=== PATIENT | female | born 1950 | race Caucasian/White ===

== ENCOUNTER 2019-11-05 15:53 | Outpatient (CLI) | payer MEDICARE, OTHER, SELFPAY ==
--- NOTE | 2019-11-05 | US_ITS ---
WS: [id number] RENAL ULTRASOUND HISTORY: RENAL CYST COMPARISON: 06/11/2019 TECHNIQUE: 2-D and color Doppler imaging of the kidney submitted. Right kidney: 11.0 cm x 3.9 cm x 5.0 cm. Normal echogenicity with no hydronephrosis or mass. Left kidney: 9.5 cm x 5.1 cm x 5.1 cm. Increased echogenicity throughout the kidney. No hydronephrosis. Again noted is the hypoechoic mass w hich is probably a cyst. Exact location is not determined by the imaging submitted but it probably fr om the upper pole. This low-attenuation mass measures 3.7 x 3.5 x 3.7 cm. Similar measurement as befo re. Aorta: Normal. Urinary Bladder: Normal distention. US/US renal BI* [id number] IMPRESSION: 1. Stable complex cyst LEFT kidney. 2. Mild atrophy LEFT kidney.
== END 2019-11-05 15:54 | disposition home or self-care (01) ==
LOC: RADOUTREAD 11-06 07:33
PROVIDERS: Family Provider Family Medicine; Visit Provider Family Medicine
DX: N28.1 Cyst of kidney, acquired (principal); N26.1 Atrophy of kidney (terminal)

== ENCOUNTER 2020-05-13 09:45 | Outpatient (CLI) | payer MEDICARE, OTHER, SELFPAY ==
--- NOTE | 2020-05-13 09:53 | MM_ITS ---
WS: [id number] Bilateral screening digital mammogram, 05/13/2020 Clinical Data: SCREENING Comparison: 03/11/2019, 01/22/2014, 06/05/2006. Findings: The breast parenchymal pattern shows fibroglandular tissue No spiculated masses or clustered calcific ations are seen. There are no secondary signs of carcinoma. MM/[place] [id number] Impression: 1. Negative bilateral mammogram unchanged. 2. Recommend annual screening mammograms. BIRADS: 1-Negative FOLLOW UP: 1 Year Follow-up The CAD furnace checker was used.
== END 2020-05-13 09:46 | disposition home or self-care (01) ==
LOC: RADSHAW 09:51
PROVIDERS: PCP Family Medicine; Visit Provider Family Medicine
DX: Z12.31 Encounter for screening mammogram for malignant neoplasm of breast (principal)
CPT/HCPCS: 77067

== ENCOUNTER 2021-06-15 12:43 | Outpatient (CLI) | payer MEDICARE, OTHER, SELFPAY ==
--- NOTE | 2021-06-15 12:52 | MM_ITS ---
WS: [id number] BILATERAL DIGITAL SCREENING MAMMOGRAPHY WITH CAD CLINICAL INFORMATION: SCREEN HISTORY: Screening mammogram. No current complaints. COMPARISON: May 13, 2020 TECHNIQUE: Bilateral CC and MLO views. FINDINGS: Scattered fibroglandular densities bilaterally. Punctate and vascular calcifications. No suspicious f ocal mass, asymmetry, calcifications, or architectural distortion. No evidence of malignancy. MM/[place] [id number] IMPRESSION: BI-RADS: 2-Benign FOLLOW UP: 1 Year Follow-up Recommend return to annual screening mammography.
== END 2021-06-15 12:44 | disposition home or self-care (01) ==
LOC: RADSHAW 12:45
PROVIDERS: PCP Family Medicine; Visit Provider Family Medicine
DX: Z12.31 Encounter for screening mammogram for malignant neoplasm of breast (principal)
CPT/HCPCS: 77067

== ENCOUNTER 2021-09-25 14:57 | Outpatient (CLI) | payer MEDICARE, OTHER, SELFPAY ==
--- NOTE | 2021-09-25 15:06 | XR_ITS ---
WS: [id number] DEXA (DUAL ENERGY X-RAY ABSORPTIOMETRY) Bone mineral density was performed using a Mydeo machine. HISTORY: POSTMENOPAUSAL COMPARISON: 09/22/2019 Lumbar spine BMD (L1-L4): 1.208 g/cm2 T score: 0.2 Z score: 1.1 Total hip BMD: Left: 0.886 g/cm2. T score: -1.0 Z score: 0.0 Right: 0.779 g/cm2. T score: -1.8 Z score: -0.8 10 year probability of a major osteoporotic fracture is 18%. Compared to the prior study from 09/22/2019. Lumbar spine bone mineral density has increased by 4.5%. Bilateral hips bone mineral density has decrease by 1.9%. XR/XR DEXA axial skeleton* [id number] IMPRESSION: OSTEOPENIA based upon the WHO classification for females. There has been a sign ificant increase in bone mineral density within the lumbar spine since the prio r study. No significant change within the hips.
== END 2021-09-25 14:58 | disposition home or self-care (01) ==
PROVIDERS: PCP Family Medicine; Visit Provider Family Medicine
DX: Z78.0 Asymptomatic menopausal state (principal); M85.80 Other specified disorders of bone density and structure, unspecified site
CPT/HCPCS: 77080

== ENCOUNTER 2022-06-26 09:31 | Outpatient (CLI) | payer MEDICARE, OTHER, SELFPAY ==
--- NOTE | 2022-06-26 09:40 | MM_ITS ---
WS: [email or web address] VIEWS: MLO and CC views both breasts. 3D digital tomosynthesis is also included in this exam. Comparison made with prior exam of 06/05/2006, 01/22/2014, 03/11/2019, 05/13/2020, 06/15/2021.. Findings: There was no sign of mass, architectural distortion or suspicious calcification in either breast. Sc attered fibroglandular densities MM/[place] [id number] Impression: BI-RADS: 2-Benign FOLLOW-UP: 1 Year Follow-up This mammogram was also analyzed by the Computer Aided Detection System R2 Imag e [employer] Applications Analyst.
== END 2022-06-26 09:32 | disposition home or self-care (01) ==
PROVIDERS: PCP Family Medicine; Visit Provider Family Medicine
DX: Z12.31 Encounter for screening mammogram for malignant neoplasm of breast (principal)
CPT/HCPCS: 77063; 77067

== ENCOUNTER 2023-07-04 10:29 | Outpatient (CLI) | payer MEDICARE, SELFPAY ==
--- NOTE | 2023-07-04 10:39 | MM_ITS ---
WS: [id number] BILATERAL SCREENING DIGITAL TOMOSYNTHESIS MAMMOGRAM WITH CAD HISTORY: SCREENING COMPARISON: 06/26/2022, 06/15/2021, 05/13/2020 Bilateral CC and MLO views with tomosynthesis and synthetic mammography submitted. Computer aided det ection analyzed. Breast composition: There are scattered areas of fibroglandular density. No suspicious masses, microc alcifications or architectural distortion. Long-term stability of subcentimeter nodules LEFT breast. IMPRESSION: MM/[place] [id number] BI-RADS: 2-Benign FOLLOW UP: 1 Year Follow-up
== END 2023-07-04 10:30 | disposition home or self-care (01) ==
PROVIDERS: PCP Family Medicine; Visit Provider Family Medicine
DX: Z12.31 Encounter for screening mammogram for malignant neoplasm of breast (principal)
CPT/HCPCS: 77063; 77067

== ENCOUNTER 2024-04-27 07:54 | Emergency (ER) | payer MEDICARE, OTHER, SELFPAY ==
[2024-04-27 08:28] VITALS: BP 141/96; PULSE 107; RESP 18; TEMP 36.9; O2SAT 98; BMI 26.8
--- NOTE | 2024-04-27 08:33 | W.ED.WOUNDLC ---
HPI - Wound/Laceration General: Chief Complaint: Wound/Laceration Stated Complaint: Cut on right foot Time Seen by Provider: 04/27/24 08:02 Source: patient Mode of arrival: wheelchair Limitations: no limitations History of Present Illness: Patient is a 73-year-old female presents to ED today for evaluation of a laceration to her right foot that she sustained after she accidentally dropped a coffee mug onto it causing the ceramic to shatter and lacerate her foot. Last tetanus was unknown. Onset (ago): hour(s) Extremity Location: Right: foot Place: home Patient tetanus UTD: No Context: accidental Associated symptoms: Reports no associated symptoms Treatments prior to arrival: bandage Review of Systems Musc: Reports: extremity pain (R foot); Denies: extremity swelling Skin/Breast: Reports: other (laceration R foot/toe) Neuro: Denies: numbness in extremities or sensory changes [facility] ED PFSH: Social History Smoking and tobacco/nicotine status: never used tobacco/nicotine Alcohol intake: never Substance/Drug Use: never Physical Exam Const: COMMON NORMALS: no acute distress, average body habitus, patient oriented x3, no limitations, healthy appearing, alert and well nourished Extremity: COMMON NORMALS: full ROM and capillary refill normal GENERAL: Yes normal exam except as noted RIGHT LOWER EXTREMITY: Yes foot & digits Right foot and digits: Yes inspection (laceration dorsal R 4th toe), Yes ROM (normal) and Yes neurovascular exam (normal) Feet w/LR Ind Top: 1. 2.0cm laceration; does not appear to involve tendon Neuro: COMMON NORMALS: patient oriented x3, moves all extremities, no focal motor deficits and no sensory deficits noted SENSORIUM/ORIENTATION: Yes alert Skin: TRAUMA: laceration Procedures Laceration Laceration 1: Site: lower extremity Side (If applicable): right Size (cm): 2.0 Description: linear Depth: simple, single layer Local Anesthetic: lidocaine 2% Amount of anesthesia used (mL): 2.0 Pre-repair: wound explored and irrigated extensively Skin layer closed with: nylon Size (cm): 5-0 Number of sutures: 4 Technique: simple, interrupted Course Vital Signs: Vital signs: Vital Signs Temperature 98.4 F 04/27/24 08:28 Pulse Rate 107 H 04/27/24 08:28 Respiratory Rate 18 04/27/24 08:28 Blood Pressure 141/96 04/27/24 08:28 Pulse Oximetry 98 04/27/24 08:28 Oxygen Delivery Me thod Room Air 04/27/24 08:28 MDM - Wound/Laceration Medical Decision Making XR unremarkable. Tetanus updated. Wound copiously irrigated and repaired as documented. Wound care/infection precautions/suture removal instructions discussed. Differential Diagnosis Likely laceration XR interpretation done by ED provider, pending radiology final review Discharge Plan Discharge Patient Disposition: Home Clinical Impression: Laceration of fourth toe of right foot Qualifiers: Encounter type: initial encounter Qualified Code(s): S91.114A - Laceration without foreign body of right lesser toe(s) without damage to nail, initial encounter Condition: Stable Prescriptions: No Action benazepril 20 mg tablet 20 mg PO DAILY hydrochlorothiazide 12.5 mg tablet 12.5 mg PO DAILY famotidine 20 mg tablet 20 mg PO DAILY multivitamin Tablet 1 tab PO DAILY cholecalciferol (vitamin D3) 25 mcg (1,000 unit) capsule 1,000 unit PO DAILY calcium carbonate [Calcium 500] 500 mg calcium (1,250 mg) tablet 500 mg PO DAILY Discharge Orders: Discharge ED (Routine); Ordered 04/27/24 Ordered By: Silva Hennessy Referrals: Chapin Mchugh MD [Primary Care Provider] - Patient Instructions: Laceration (DC) Activity Restrictions/Additional Instructions: Keep wound/laceration clean with warm soap and water twice daily. Monitor for signs of infection such as redness, swelling, increased pain, or drainage. Please seek medical re-evaluation if these occur. If you received sutures today these will need to be removed. The provider should have discussed with you the length of time until removal-7 DAYS. Coding Level of Care Code ED Yard Foreman for Elbert Dugan
--- NOTE | 2024-04-27 08:36 | XR_ITS ---
WS: [id number] XR toe RT min 2V [id number] REASON FOR EXAM: trauma/laceration FINDINGS: Old healed fracture of the proximal phalanx of the fifth toe. Severe subluxations of the toes limits evaluation of the mid and distal phalanx of the second through the fourth toes. No acute fracture is identified. No radiopaque soft tissue abnormality is noted. XR/XR toe RT min 2V [id number] IMPRESSION: Limited examination due to severe subluxations. No acute abnormality identified .
[2024-04-27] MEDS: tetanus-dipt-pertussis 0.5 mL SDV IM (08:51)
== END 2024-04-27 09:28 | disposition home or self-care (01) ==
PROVIDERS: Emergency Provider Physician Assistant; PCP Family Medicine
DX: S91.114A Laceration without foreign body of right lesser toe(s) without damage to nail, initial encounter (principal); W25.XXXA Contact with sharp glass, initial encounter; Z23 Encounter for immunization
CPT/HCPCS: 12001; 73660; 90471; 90715; 99283

== ENCOUNTER 2024-07-10 10:17 | Outpatient (CLI) | payer MEDICARE, OTHER, SELFPAY ==
--- NOTE | 2024-07-10 10:30 | MM_ITS ---
WS: [id number] SCREENING DIGITAL BREAST TOMOSYNTHESIS MAMMOGRAM WITH CAD HISTORY: SCREENING COMPARISON: 07/04/2023, 06/26/2022, 05/13/2020 Bilateral CC and MLO with tomosynthesis and synthetic mammography submitted. Computer aided detection analyzed. Breast composition: There are scattered areas of fibroglandular density. New ovoid nodule measuring 4 x 10 x 8 mm in the lateral inferior LEFT breast at a middle depth. There is an additional 6 mm nodul e in the upper outer quadrant of the RIGHT breast with long-term stability. A few benign calcificatio ns. MM/MM scr BI tomosynthesis [id number] IMPRESSION: BI-RADS: 0 - Incomplete: Need additional imaging evaluation. FOLLOW UP: Need Additional Imaging LEFT breast: Spot compression views (CC and MLO). True ML. Ultrasound to follow if abnormality persists.
== END 2024-07-10 10:18 | disposition home or self-care (01) ==
LOC: RAD 10:18
PROVIDERS: PCP Family Medicine; Visit Provider Family Medicine
DX: Z12.31 Encounter for screening mammogram for malignant neoplasm of breast (principal)
CPT/HCPCS: 77063; 77067

== ENCOUNTER 2024-08-17 12:23 | Outpatient (CLI) | payer MEDICARE, SELFPAY ==
--- NOTE | 2024-08-17 12:37 | US_ITS ---
WS: [id number] ADDITIONAL VIEWS LEFT MAMMOGRAM with tomosynthesis. LEFT BREAST ULTRASOUND HISTORY: ABNORMAL MAMMO COMPARISON: 07/10/2024, 07/04/2023 LEFT MAMMOGRAM: Spot compression views and true ML with tomosynthesis and sympathetic mammography. Ovoid mass of increased density persists in the lateral LEFT breast near 3-4 o'clock. Mass measures 8 x 4 x 4 mm. This may be a benign lymph node. No additional abnormality. No calcifications. LEFT BREAST ULTRASOUND 2-D and color Doppler imaging submitted. Ovoid mildly complex cystic mass at 3:00, 4 cm the nipple measures 0.7 x 0.5 x 0.3 cm. No increased v ascularity. This corresponds in size and location to the mammographic abnormality. There is an additi onal smaller complex cyst at 4:00, 2 cm the nipple measuring 0.2 x 0.4 x 0.2 cm. US/US breast LT limited* [id number] IMPRESSION: BI-RADS: 3- Probably Benign FOLLOW UP: 6 Month Follow-up Mammographic abnormality in the LEFT breast corresponds to mildly complex cyst at 3:00 by ultrasound. There is an additional smaller cyst at 4:00 noted by anusha hobson. Recommend 6-month LEFT breast ultrasound follow-up to confirm stabilit y.
--- NOTE | 2024-08-17 13:33 | MM_ITS ---
WS: [id number] ADDITIONAL VIEWS LEFT MAMMOGRAM with tomosynthesis. LEFT BREAST ULTRASOUND HISTORY: ABNORMAL MAMMO COMPARISON: 07/10/2024, 07/04/2023 LEFT MAMMOGRAM: Spot compression views and true ML with tomosynthesis and sympathetic mammography. Ovoid mass of increased density persists in the lateral LEFT breast near 3-4 o'clock. Mass measures 8 x 4 x 4 mm. This may be a benign lymph node. No additional abnormality. No calcifications. LEFT BREAST ULTRASOUND 2-D and color Doppler imaging submitted. Ovoid mildly complex cystic mass at 3:00, 4 cm the nipple measures 0.7 x 0.5 x 0.3 cm. No increased v ascularity. This corresponds in size and location to the mammographic abnormality. There is an additi onal smaller complex cyst at 4:00, 2 cm the nipple measuring 0.2 x 0.4 x 0.2 cm. MM/MM diag LT tomosynthesis [id number] IMPRESSION: BI-RADS: 3- Probably Benign FOLLOW UP: 6 Month Follow-up Mammographic abnormality in the LEFT breast corresponds to mildly complex cyst at 3:00 by ultrasound. There is an additional smaller cyst at 4:00 noted by anusha hobson. Recommend 6-month LEFT breast ultrasound follow-up to confirm stabilit y.
== END 2024-08-17 12:24 | disposition home or self-care (01) ==
PROVIDERS: PCP Family Medicine; Visit Provider Family Medicine
DX: R92.2 Inconclusive mammogram (principal); N60.12 Diffuse cystic mastopathy of left breast
CPT/HCPCS: 76642; 77061; G0279

== ENCOUNTER 2024-08-20 14:12 | Oncology outpatient (recurring) (ONCR) | payer MEDICARE, OTHER, SELFPAY | END 2024-08-27 23:59 | disposition home or self-care (01) | PROVIDERS: PCP Family Medicine; Visit Provider Internal Medicine Hematology & Oncology | DX: C90.00 Multiple myeloma not having achieved remission (principal) | CPT/HCPCS: 99204 ==

== ENCOUNTER 2024-09-04 09:42 | Outpatient (CLI) | payer MEDICARE, OTHER, SELFPAY ==
--- NOTE | 2024-09-04 10:00 | PETR_ITS ---
PROCEDURE INFORMATION: Exam: PET/CT Skull Base to Mid-thigh Exam date and time: 09/04/2024 11:08 AM Age: 74 years old Clinical indication: Condition or disease; Primary cancer: Multiple myeloma LABS AND CLINICAL REPORTS: Glucose: 117 mg/dl Treatment strategy for malignancy (PET staging): Initial Staging (PI) TECHNIQUE: Imaging protocol: Following at least four-hour fasting and following the injection of radiopharmaceutical, low dose CT images were obtained. Then, PET images were obtained. Attenuation corrected images were constructed using the CT scan. Fused images of PET and CT were reviewed. The standardized uptake values (SUV) reported below are maximum values within a region of interest, expressed in gm/ml. Exam includes orbital meatal line to mid-thigh. Radiopharmaceutical: 11.06 mCi F-18 FDG (Fluorodeoxyglucose), IV. Time of imaging post radiopharmaceutical administration: 1 hour; 49 minutes Injection site: Right wrist COMPARISON: CT abdomen pelvis w con* [id number] 02/21/2018 8:16 AM FINDINGS: Brain: Visualized brain has normal physiologic uptake. Pharynx: No abnormal uptake. Larynx: No abnormal uptake. Lungs, pleura and trachea: No abnormal uptake. Stable non FDG avid 4 mm left lower lobe nodule on axial image 369 of series 202. Mild dependent atelectasis. Heart: Normal physiologic uptake. Coronary arteries: Mild coronary artery calcification. Mediastinal space: No abnormal uptake. Liver: No abnormal uptake. Stable right hepatic cyst. Gallbladder and biliary ducts: No abnormal uptake. Pancreas: No abnormal uptake. Spleen: No abnormal uptake. Adrenal glands: No abnormal uptake. Kidneys and ureters: Normal physiologic uptake. Photopenic simple left renal cyst. Stomach and bowel: No abnormal uptake. Colonic diverticulosis without findings of diverticulitis. Vasculature: No abnormal uptake. [id number] systemic atherosclerotic calcification without aortic aneurysm. Lymph nodes: No abnormal uptake. No lymphadenopathy in the head, neck, chest, abdomen, pelvis, and extremities. Skeleton: Mild chronic appearing anterior wedge morphology of the T8 and T9 vertebral bodies. Degenerative change along the axial and imaged appendicular skeletal system. Right total hip arthroplasty. Left total knee arthroplasty. No aggressive osteolytic or blastic lesion. Transitional lumbosacral anatomy with left-sided pseudoarticulation. Soft tissues: No abnormal uptake in the visualized head, neck, chest, abdomen, pelvis, and extremities. PET/PET skull to thigh INIT [id number] IMPRESSION: No findings of FDG avid multiple myeloma.
== END 2024-09-04 09:43 | disposition home or self-care (01) ==
PROVIDERS: PCP Family Medicine; Visit Provider Internal Medicine Hematology & Oncology
DX: C90.00 Multiple myeloma not having achieved remission (principal); Q44.6 Cystic disease of liver; N28.1 Cyst of kidney, acquired; K57.90 Diverticulosis of intestine, part unspecified, without perforation or abscess without bleeding; I70.0 Atherosclerosis of aorta; Z96.641 Presence of right artificial hip joint; Z96.652 Presence of left artificial knee joint
CPT/HCPCS: 78815; A9552

== ENCOUNTER 2024-09-21 09:36 | Oncology outpatient (recurring) (ONCR) | payer MEDICARE, OTHER, SELFPAY | END 2024-09-26 23:59 | disposition home or self-care (01) | PROVIDERS: Absent Provider Internal Medicine Medical Oncology; PCP Family Medicine; Visit Provider Internal Medicine Medical Oncology | DX: C90.00 Multiple myeloma not having achieved remission (principal) | CPT/HCPCS: 36415; 80053; 82784; 83883; 84155; 84165; 85025; 99214 ==

== ENCOUNTER 2024-10-05 09:16 | Oncology outpatient (recurring) (ONCR) | payer MEDICARE, OTHER, SELFPAY ==
[2024-10-06 12:08] LABS: CREATININE, 24 HOUR URINE 1.24 g/24 h (0.50-2.15); PROTEIN, TOTAL, 24 HR UR 198 mg/24 h (<150); Protein/Creatinine Ratio 0.159 (<0.150); Protein/Creatinine Ratio 159 mg/g creat (<150)
[2024-10-07 15:30] LABS: ABNORMAL PROTEIN BAND 1 28 mg/24 h (NONE DETECTED); ALBUMIN 50 %; ALPHA-1-GLOBULINS 4 %; ALPHA-2-GLOBULINS 9 %; BETA GLOBULINS 10 %; GAMMA GLOBULINS 27 %
== END 2024-10-27 23:59 | disposition home or self-care (01) ==
PROVIDERS: Absent Provider Internal Medicine Medical Oncology; PCP Family Medicine; Visit Provider Internal Medicine Medical Oncology
DX: C90.00 Multiple myeloma not having achieved remission (principal)
CPT/HCPCS: 84156; 84166

== ENCOUNTER 2024-12-24 12:10 | Oncology outpatient (recurring) (ONCR) | payer MEDICARE, OTHER, SELFPAY ==
[2024-12-24 12:58] LABS: Basophils % 0.7 %; Eosinophils # 0.1 10^3/uL (0.0-0.8); Eosinophils % 2.2 %; Hematocrit 41.1 % (36-47); Lymphocytes % 34.2 %; Mean Corpuscular HGB Conc 33.6 g/dL (30-55); Mean Corpuscular Hemoglobin 30.1 pg (27-33); Mean Corpuscular Volume 89.5 fl (85-98); Mean Platelet Volume 8.9 fL (7.4-10.4); Monocytes # 0.4 10^3/uL (0.2-0.9); Monocytes % 6.3 %; Neutrophils # 3.33 10^3/uL (1.8-7.7); Neutrophils % 56.6 %; Nucleated Red Blood Cells % 0 %; Platelet Count 247 10^3/cmm (157-399); Red Blood Count 4.59 10^6/uL (3.85-5.65); Red Cell Distribution Width 13.3 % (12.1-15.1); White Blood Count 5.88 10^3/uL (3.29-11.43)
[2024-12-24 13:14] LABS: Alanine Aminotransferase 18 U/L (0-33); Albumin Level 4.2 g/dL (3.5-5.2); Alkaline Phosphatase 83 U/L (35-105); Anion Gap 15.2 (5-19); Aspartate Amino Transferase 22 U/L (0-32); Blood Urea Nitrogen 21 mg/dL (8-23); Calcium 9.4 mg/dL (8.5-10.5); Carbon Dioxide 25 mmol/L (22-29); Chloride 101 mmol/L (98-107); Globulin 2.6 g/dL (1.3-4.6); Glucose 107 mg/dL (65-115); Immunoglobulin IGA 164 mg/dL (70-400); Immunoglobulin IGG 888 mg/dL (700-1600); Immunoglobulin IGM 53 mg/dL (40-230); Osmolality Calculated 287 mOsm/kg (285-295); Potassium 4.2 mmol/L (3.5-5.1); Sodium 137 mmol/L (136-145); Total Bilirubin 0.4 mg/dL (0.15-1.2); Total Protein 6.8 g/dL (6.6-8.7)
[2024-12-25 07:23] LABS: PROTEIN, TOTAL 6.8 g/dL (6.1-8.1)
== END 2024-12-25 23:59 | disposition home or self-care (01) ==
LOC: ONCMED 12:10
PROVIDERS: Absent Provider Internal Medicine Medical Oncology; PCP Family Medicine; Visit Provider Internal Medicine Medical Oncology
DX: C90.00 Multiple myeloma not having achieved remission (principal)
CPT/HCPCS: 36415; 80053; 82784; 83883; 84155; 84165; 85025

== ENCOUNTER 2024-12-31 09:23 | Oncology outpatient (recurring) (ONCR) | payer MEDICARE, OTHER, SELFPAY | END 2025-01-25 23:59 | disposition home or self-care (01) | PROVIDERS: Absent Provider Internal Medicine Medical Oncology; PCP Family Medicine; Visit Provider Internal Medicine | DX: C90.00 Multiple myeloma not having achieved remission (principal) | CPT/HCPCS: 99213 ==

== ENCOUNTER 2025-04-08 10:19 | Oncology outpatient (recurring) (ONCR) | payer MEDICARE, SELFPAY ==
[2025-03-30 14:46] LABS: Basophils # 0.1 10^3/uL (0.0-0.1); Basophils % 0.8 %; Eosinophils # 0.1 10^3/uL (0.0-0.8); Eosinophils % 1.5 %; Hematocrit 40.3 % (36-47); Lymphocytes # 2.3 10^3/uL (0.8-4.8); Lymphocytes % 35.1 %; Mean Corpuscular HGB Conc 33.3 g/dL (30-55); Mean Corpuscular Hemoglobin 30.2 pg (27-33); Mean Platelet Volume 9.4 fL (7.4-10.4); Monocytes # 0.5 10^3/uL (0.2-0.9); Monocytes % 6.9 %; Neutrophils # 3.69 10^3/uL (1.8-7.7); Neutrophils % 55.4 %; Nucleated Red Blood Cells % 0 %; Platelet Count 267 10^3/cmm (157-399); Red Blood Count 4.43 10^6/uL (3.85-5.65); Red Cell Distribution Width 13.5 % (12.1-15.1); White Blood Count 6.66 10^3/uL (3.29-11.43)
[2025-03-30 15:08] LABS: Alanine Aminotransferase 17 U/L (0-33); Albumin Level 4.3 g/dL (3.5-5.2); Alkaline Phosphatase 75 U/L (35-105); Aspartate Amino Transferase 24 U/L (0-32); Blood Urea Nitrogen 13 mg/dL (8-23); Calcium 9.2 mg/dL (8.5-10.5); Carbon Dioxide 25 mmol/L (22-29); Chloride 99 mmol/L (98-107); Globulin 2.6 g/dL (1.3-4.6); Glucose 104 mg/dL (65-115); Immunoglobulin IGA 149 mg/dL (70-400); Immunoglobulin IGG 833 mg/dL (700-1600); Immunoglobulin IGM 46 mg/dL (40-230); Osmolality Calculated 286 mOsm/kg (285-295); Phosphorus 3.4 mg/dL (2.5-4.5); Sodium 138 mmol/L (136-145); Total Bilirubin 0.5 mg/dL (0.15-1.2); Total Protein 6.9 g/dL (6.6-8.7); Uric Acid 3.3 mg/dL (2.4-5.7)
[2025-03-30 15:28] LABS: Lactate Dehydrogenase 188 U/L (135-214)
[2025-03-31 08:54] LABS: PROTEIN, TOTAL 6.5 g/dL (6.1-8.1)
[2025-03-31 13:51] LABS: CREATININE, 24 HOUR URINE 1.09 g/24 h (0.50-2.15); PROTEIN, TOTAL, 24 HR UR 170 mg/24 h (<150); Protein/Creatinine Ratio 0.156 (<0.150); Protein/Creatinine Ratio 156 mg/g creat (<150)
[2025-03-31 16:15] LABS: Beta-2-Microglobulin 2.38 mg/L (< OR = 2.51)
[2025-04-01 15:44] LABS: KAPPA LIGHT CHAIN, FREE, SERUM 605.4 mg/L (3.3-19.4); KAPPA/LAMBDA LIGHT CHAINS FREE 89.03 (0.26-1.65); LAMBDA LIGHT CHAIN, FREE, SERU 6.8 mg/L (5.7-26.3)
[2025-04-01 17:48] LABS: ALBUMIN 4.2 g/dL (3.8-4.8); ALPHA 1 GLOBULIN 0.3 g/dL (0.2-0.3); ALPHA 2 GLOBULIN 0.6 g/dL (0.5-0.9); BETA 1 GLOBULIN 0.4 g/dL (0.4-0.6); BETA 2 GLOBULIN 0.2 g/dL (0.2-0.5); GAMMA GLOBULIN 0.8 g/dL (0.8-1.7)
[2025-04-03 15:49] LABS: Immunofixation Serum Normal pattern.
[2025-04-07 10:10] LABS: ALBUMIN 100 %; ALPHA-1-GLOBULINS 0 %; ALPHA-2-GLOBULINS 0 %; BETA GLOBULINS 0 %; GAMMA GLOBULINS 0 %
== END 2025-04-26 23:59 | disposition home or self-care (01) ==
PROVIDERS: Absent Provider Internal Medicine Medical Oncology; PCP Family Medicine; Visit Provider Internal Medicine
DX: C90.00 Multiple myeloma not having achieved remission (principal)
CPT/HCPCS: 36415; 80053; 82232; 82784; 83615; 83883; 84100; 84155; 84156; 84165; 84166; 84550; 85025; 86334; 86335; 99213

== ENCOUNTER 2025-07-08 10:40 | Oncology outpatient (recurring) (ONCR) | payer MEDICARE, OTHER, SELFPAY ==
[2025-06-29 15:09] LABS: Hematocrit 39.8 % (36-47); Hemoglobin 13.40 g/dL (11.27-16.99); Mean Corpuscular HGB Conc 33.7 g/dL (30-55); Mean Corpuscular Hemoglobin 30.6 pg (27-33); Mean Corpuscular Volume 90.9 fl (85-98); Nucleated Red Blood Cells % 0 %; Platelet Count 246 10^3/cmm (157-399); Red Blood Count 4.38 10^6/uL (3.85-5.65); White Blood Count 6.25 10^3/uL (3.29-11.43)
[2025-06-29 15:30] LABS: Alanine Aminotransferase 17 U/L (0-33); Albumin Level 4.2 g/dL (3.5-5.2); Alkaline Phosphatase 74 U/L (35-105); Anion Gap 15.0 (5-19); Aspartate Amino Transferase 21 U/L (0-32); Blood Urea Nitrogen 17 mg/dL (8-23); Calcium 9.0 mg/dL (8.5-10.5); Carbon Dioxide 26 mmol/L (22-29); Chloride 102 mmol/L (98-107); Globulin 2.5 g/dL (1.3-4.6); Glucose 125 mg/dL (65-115); Osmolality Calculated 291 mOsm/kg (285-295); Potassium 4.0 mmol/L (3.5-5.1); Sodium 139 mmol/L (136-145); Total Protein 6.7 g/dL (6.6-8.7)
[2025-06-30 05:20] LABS: PROTEIN, TOTAL 6.4 g/dL (6.1-8.1)
[2025-06-30 14:54] LABS: KAPPA LIGHT CHAIN, FREE, SERUM 689.3 mg/L (3.3-19.4); KAPPA/LAMBDA LIGHT CHAINS FREE 89.52 (0.26-1.65); LAMBDA LIGHT CHAIN, FREE, SERU 7.7 mg/L (5.7-26.3)
[2025-07-01 09:04] LABS: ALPHA 1 GLOBULIN 0.2 g/dL (0.2-0.3); ALPHA 2 GLOBULIN 0.5 g/dL (0.5-0.9); BETA 1 GLOBULIN 0.4 g/dL (0.4-0.6); BETA 2 GLOBULIN 0.2 g/dL (0.2-0.5)
[2025-07-04 07:04] LABS: Protein/Creatinine Ratio 0.196 (<0.150); Protein/Creatinine Ratio 196 mg/g creat (<150)
[2025-07-08 09:44] LABS: ALPHA-1-GLOBULINS 4 %; ALPHA-2-GLOBULINS 7 %; BETA GLOBULINS 10 %; GAMMA GLOBULINS 43 %
== END 2025-07-27 23:59 | disposition home or self-care (01) ==
PROVIDERS: Absent Provider Internal Medicine Medical Oncology; PCP Family Medicine; Visit Provider Internal Medicine
DX: C90.00 Multiple myeloma not having achieved remission (principal)
CPT/HCPCS: 36415; 80053; 82232; 82570; 82784; 83615; 83883; 84100; 84155; 84165; 84166; 85025; 86334; 86335; 99213

== ENCOUNTER 2025-07-29 13:03 | Outpatient (CLI) | payer MEDICARE, OTHER, SELFPAY ==
--- NOTE | 2025-07-29 13:06 | XR_ITS ---
WS: [email or web address] SCREENING DEXA SCAN [employer] CLINICAL INFORMATION: POSTMENOPAUSAL COMPARISON: 2020 FINDINGS: The L1-L4 bone mineral density measures 1.17. This corresponds to a T score score of -0.2 and Z score of 1.0. Left femoral neck bone mineral density measures 0.840 (g/cm2). This corresponds to a T score of -1.3 (no units) and Z score of 0.0 (no units). XR/XR DEXA axial skeleton* [id number] IMPRESSION: Normal bone mineralization lumbar spine. Osteopenia LEFT femoral neck. Patient's FRAX calculated 10 year probability for major osteoporotic fracture i s 21.2% and osteoporotic hip fracture is 11.4%. Bone density lumbar spine decreased -3.8% Bone density LEFT femoral neck decreased -5.2%
--- NOTE | 2025-07-29 13:14 | MM_ITS ---
WS: [email or web address] BILATERAL 3D TOMOSYNTHESIS DIGITAL SCREENING MAMMOGRAPHY WITH CAD CLINICAL INFORMATION: SCREENING HISTORY: Screening mammogram. No current complaints. 6-month follow-up imaging from earlier this year at outside facility not currently available. However, patient letter dated 01/17/2025 from [facility] notes no areas of concern COMPARISON: 08/17/2024 07/10/2024 TECHNIQUE: Bilateral CC and MLO views. FINDINGS: Scattered fibroglandular densities bilaterally. No suspicious focal mass, asymmetry, calcifications, or architectural distortion. No evidence of malignancy. A few incidental punctate calcifications. Vascular calcification. MM/MM [facility] tomosynthesis [id number] IMPRESSION: DENSITY: There are scattered areas of fibroglandular density. BI-RADS: 2 - Benign. FOLLOW UP: 1 Year Follow-up Recommend return to annual screening mammography.
== END 2025-07-29 13:04 | disposition home or self-care (01) ==
LOC: RAD 13:03
PROVIDERS: PCP Family Medicine; Visit Provider Family Medicine
DX: Z12.31 Encounter for screening mammogram for malignant neoplasm of breast (principal); Z13.820 Encounter for screening for osteoporosis; Z78.0 Asymptomatic menopausal state; R92.323 Mammographic fibroglandular density, bilateral breasts; R92.1 Mammographic calcification found on diagnostic imaging of breast
CPT/HCPCS: 77063; 77067; 77080

== ENCOUNTER → 2025-08-04 10:15 | Outpatient (BNVA) | payer MEDICARE, OTHER, SELFPAY | PROVIDERS: PCP Family Medicine; Visit Provider Podiatrist Foot & Ankle Surgery | DX: M25.572 Pain in left ankle and joints of left foot (principal); M19.072 Primary osteoarthritis, left ankle and foot | CPT/HCPCS: 99203 ==

== ENCOUNTER 2025-10-15 14:00 | Oncology outpatient (recurring) (ONCR) | payer MEDICARE, OTHER, SELFPAY ==
[2025-09-27 14:06] LABS: Hematocrit 41.3 % (36-47); Hemoglobin 14.10 g/dL (11.27-16.99); Mean Corpuscular HGB Conc 34.1 g/dL (30-55); Mean Corpuscular Hemoglobin 30.9 pg (27-33); Mean Corpuscular Volume 90.6 fl (85-98); Nucleated Red Blood Cells % 0 %; Platelet Count 288 10^3/cmm (157-399); Red Blood Count 4.56 10^6/uL (3.85-5.65); White Blood Count 8.15 10^3/uL (3.29-11.43)
[2025-09-27 14:22] LABS: Alanine Aminotransferase 20 U/L (0-33); Albumin Level 4.5 g/dL (3.5-5.2); Alkaline Phosphatase 83 U/L (35-105); Anion Gap 15.4 (5-19); Aspartate Amino Transferase 23 U/L (0-32); Blood Urea Nitrogen 20 mg/dL (8-23); Calcium 9.4 mg/dL (8.5-10.5); Carbon Dioxide 25 mmol/L (22-29); Chloride 101 mmol/L (98-107); Globulin 2.7 g/dL (1.3-4.6); Glucose 110 mg/dL (65-115); Osmolality Calculated 287 mOsm/kg (285-295); Potassium 4.4 mmol/L (3.5-5.1); Sodium 137 mmol/L (136-145); Total Protein 7.2 g/dL (6.6-8.7); Uric Acid 4.0 mg/dL (2.4-5.7)
[2025-09-28 09:05] LABS: PROTEIN, TOTAL 6.5 g/dL (6.1-8.1)
[2025-09-28 10:04] LABS: Protein/Creatinine Ratio 0.239 (<0.150); Protein/Creatinine Ratio 239 mg/g creat (<150)
[2025-09-28 14:35] LABS: KAPPA LIGHT CHAIN, FREE, SERUM 703.3 mg/L (3.3-19.4); KAPPA/LAMBDA LIGHT CHAINS FREE 90.17 (0.26-1.65); LAMBDA LIGHT CHAIN, FREE, SERU 7.8 mg/L (5.7-26.3)
[2025-09-28 19:50] LABS: ALPHA 1 GLOBULIN 0.3 g/dL (0.2-0.3); ALPHA 2 GLOBULIN 0.6 g/dL (0.5-0.9); BETA 1 GLOBULIN 0.4 g/dL (0.4-0.6); BETA 2 GLOBULIN 0.2 g/dL (0.2-0.5)
[2025-09-30 10:20] LABS: ALPHA-1-GLOBULINS 4 %; ALPHA-2-GLOBULINS 6 %; BETA GLOBULINS 9 %; GAMMA GLOBULINS 47 %
--- NOTE | 2025-10-15 14:00 | PETR_ITS ---
PROCEDURE INFORMATION: Exam: PET/CT Whole Body Exam date and time: 10/15/2025 2:33 PM Age: 75 years old Clinical indication: Condition or disease; Primary cancer: Multiple myeloma not having achieved remission; Prior surgery; Surgery date: 6+ months; Surgery type: R hip, lt, knee, hyst LABS AND CLINICAL REPORTS: Glucose: 95 mg/dl Treatment strategy for malignancy (PET staging): Restaging (PS) TECHNIQUE: Imaging protocol: Following at least four-hour fasting and following the injection of radiopharmaceutical, low dose CT images were obtained. Then, PET images were obtained. Attenuation corrected images were constructed using the CT scan. Fused images of PET and CT were reviewed. The standardized uptake values (SUV) reported below are maximum values within a region of interest, expressed in gm/ml. Exam includes the whole body. SUV normalization method: BodyWeight Radiopharmaceutical: 10.89 mCi F-18 FDG (Fluorodeoxyglucose), IV. Time of imaging post radiopharmaceutical administration: 42 minutes Injection site: LEFT HAND COMPARISON: PT PET skull to thigh INIT [id number] 09/04/2024 11:08 AM FINDINGS: Brain: On the nondedicated limited brain images there is no abnormal distribution of the radiotracer in the santoyo and white matter. Pharynx: Normal distribution of the radiotracer in nasopharyngeal, oropharyngeal structures. Larynx: Normal distribution of the radiotracer in laryngeal structures. Lungs, pleura and trachea: No abnormal uptake. No lung nodules or masses. No pleural effusion. Heart: Normal physiologic uptake. There is no cardiomegaly. Coronary artery calcification is present. There is no pericardial effusion. Mediastinal space: No abnormal uptake. Liver: Normal size without abnormal radiotracer uptake. Stable 1.4 cm simple cyst in the segment 7. Gallbladder and biliary ducts: Unremarkable. Pancreas: Normal distribution of radiotracer. Spleen: Normal size without abnormal radiotracer uptake. Adrenal glands: No abnormal uptake. No nodules. Kidneys and ureters: Normal physiologic uptake. No hydronephrosis. Stable simple renal cyst in the midpole of the left kidney measuring 5.5 cm. Stomach and bowel: No abnormal uptake. Intraperitoneal and retroperitoneal spaces: No abnormal uptake. No ascites. Bladder: Normal physiologic uptake. Reproductive: No abnormal uptake. The uterus is absent post surgically. Vasculature: No abnormal uptake. Ascending aorta dilated to 4.1 cm. No aneurysm of the ascending aorta. Lymph nodes: No abnormal uptake. No lymphadenopathy in the head, neck, chest, abdomen, pelvis, and extremities. Skeleton: Increased linear uptake around the left knee prosthesis is likely benign. Otherwise, there is no abnormal uptake in the visualized axial and appendicular skeleton. Status post right hip replacement Soft tissues: Intense linear uptake of 11.1 SUV anteriorly laterally in the right proximal dorsal foot in the sinus tarsi associated with some asymmetric soft tissue density or fluid likely represents benign inflammatory condition, maybe sinus tarsi syndrome. METRICS: Mediastinal blood pool: Max SUV of 3.2, mean SUV of 2.5 Liver uptake: Max SUV of 4.3, mean SUV of 3 PET/PET WB melanoma SUBSEQ [id number] IMPRESSION: No abnormal uptake in the bones concerning for viable multiple myeloma lesions. No FDG avid extraosseous abnormality concerning for multiple myeloma. 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
== END 2025-10-27 23:59 | disposition home or self-care (01) ==
LOC: ONCMED 10-18 09:34
PROVIDERS: Absent Provider Internal Medicine Medical Oncology; PCP Family Medicine; Visit Provider Internal Medicine
DX: C90.00 Multiple myeloma not having achieved remission; I25.10 Atherosclerotic heart disease of native coronary artery without angina pectoris; K76.89 Other specified diseases of liver; N28.1 Cyst of kidney, acquired; Z98.890 Other specified postprocedural states; I77.810 Thoracic aortic ectasia; Z96.652 Presence of left artificial knee joint; Z96.641 Presence of right artificial hip joint; M79.89 Other specified soft tissue disorders; Z53.9 Procedure and treatment not carried out, unspecified reason
CPT/HCPCS: 36415; 78816; 80053; 82232; 82570; 82784; 83615; 83883; 84155; 84165; 84166; 84550; 85025; 86335; 99213; A9552